=== PATIENT | male | born 1935 ===

== ENCOUNTER 2018-10-12 23:16 | Inpatient (IN) | payer MEDICARE ==
[2018-10-12 23:17] VITALS: BMI 27.3
[2018-10-12] MEDS ORDERED: Aspirin 325 mg EC Tablets PO STA (23:21)
--- NOTE | 2018-10-12 23:21 | C.PDOC ---
History Of Present Illness Patient presents with chest discomfort since around 10:30 PM. Dull aching non radiating discomfort., pressure. Received 324 mg asa en route. Nof/c/n/v. Speaking in complete sentences Time Seen by Provider: 10/12/18 23:20 History Per: Patient History/Exam Limitations: no limitations Onset/Duration Of Symptoms: Hrs Current Symptoms Are (Timing): Still Present Context: Other Severity: Moderate Pain Scale Rating Of: 4 Quality: Dull, Pressure Associated Symptoms: denies: Nausea, Dyspnea Exacerbating Factors: None Alleviating Factors: None Recent travel outside of the [place]: No Additional History Per: Family Past Medical History Reviewed: Historical Data, Nursing Documentation, Vital Signs - Medical History PMH: CAD, Diabetes, HTN, Hypercholesterolemia Denies: Hepatitis, HIV, Seizures, Sexually Transmitted Disease Surgical History: Coronary Stent - [facility] Procedures ENDOSC POLYPECTOMY OF LG INTEST (02/07/14) ESOPHAGOGASTRODUODENOSCOPY [EGD] W/CLOSED BIOPSY (02/07/14) Family History: States: No Known Family Hx - Social History Hx Tobacco Use: No Hx Alcohol Use: No Hx Substance Use: No Review Of Systems Constitutional: Negative for: Fever, Chills Eyes: Negative for: Redness ENT: Negative for: Throat Pain Cardiovascular: Positive for: Chest Pain Respiratory: Negative for: Shortness of Breath Gastrointestinal: Negative for: Abdominal Pain Musculoskeletal: Negative for: Neck Pain Skin: Negative for: Rash Neurological: Negative for: Weakness Psych: Negative for: Anxiety Physical Exam - Physical Exam Appears: Non-toxic Skin: Warm, Dry Head: Normacephalic Eye(s): bilateral: Normal Inspection Ear(s): Bilateral: Other ([place]) Oral Mucosa: Moist Neck: Supple Chest: Symmetrical, Other (cabg) Cardiovascular: Rhythm Regular Respiratory: Rales (bases), No Rhonchi, No Wheezing Gastrointestinal/Abdominal: Soft, No Tenderness, No Distention Back: No CVA Tenderness Extremity: Normal ROM, Deformity (trace pedal edema) Extremity: Bilateral: Atraumatic, Normal ROM Pulses: Left Dorsalis Pedis: Normal, Right Dorsalis Pedis: Normal DTR: Ankle (R): 0, Ankle (L): 0 Neurological/Psych: Oriented x3 Gait: Steady ED Course And Treatment - Laboratory Results Result Diagrams: 10/12/18 23:33 10/12/18 23:33 ECG: Interpreted By Me, Viewed By Me ECG Rhythm: Sinus Rhythm (70), R BBB (freq pac's) Pulse Ox Interpretation: Normal (97) - Radiology CXR: Interpreted by Me, Viewed By Me CXR Interpretation: Yes: Infiltrates (? rll infitrate), Other (mild vasc scotty estion). No: COPD, Cardiomegaly Disposition Discussed With Dr.: Kell Mcneil Comment: accepted the pt on his service and took over the care at 12:29 AM Doctor Will See Patient In The: Hospital Counseled Patient/Family Regarding: Studies Performed, Diagnosis - Disposition Disposition: HOSPITALIZED Disposition Time: 23:21 Condition: FAIR - POA Present On Arrival: Poor Glycemic Control - Clinical Impression Clinical Impression: Chest pain, Hyperglycemia Decision To Admit - Pt Status Changed To: Hospital Disposition Of: Inpatient - Admit Certification Admit to Inpatient:: After my assessment, the patient will require hospitalization for at least two midnights. This is because of the severity of symptoms shown, intensity of services needed, and/or the medical risk in this patient being treated as an outpatient. - InPatient: Physician Admission Certification: I certify that this patient requires 2 or more midnights of care for the following reason:: After my assessment, the patient will require hospitalization for at least two midnights. This is because of the severity of symptoms shown, intensity of services needed, and/or the medical risk in this patient being treated as an outpatient. - . Bed Request Type: Telemetry Admitting Physician: Kell Mcneil Patient Diagnosis: Chest pain, Hyperglycemia
[2018-10-12 23:40] LABS: BASO % 0.5 % (0.0-2.0); EOS # 0.1 K/uL (0.0-0.7); EOS % 2.1 % (0.0-4.0); HEMOGLOBIN 15.9 g/dL (12.0-18.0); LYMPH # 2.2 K/uL (1.0-4.3); MEAN CELL VOLUME 96.4 fL (80.0-94.0); MEAN CORPUSCULAR HEMOGLOBIN 31.6 pg (27.0-31.0); MEAN CORPUSCULAR HGB CONC 32.8 g/dL (33.0-37.0); MEAN PLATELET VOLUME 10.7 fL (7.2-11.7); MONO # 0.8 K/uL (0.0-0.8); MONO % 11.5 % (0.0-10.0); NEUT # 3.8 K/uL (1.8-7.0); NEUT % 53.9 % (50.0-75.0); RBC 5.02 Mil/uL (4.40-5.90); RED CELL DISTRIBUTION WIDTH 12.7 % (11.5-14.5)
[2018-10-12 23:50] LABS: VENOUS BLOOD GAS BASE EXCESS 2.5 mmol/L (0.0-2.0); VENOUS BLOOD GAS PCO2 48 mmHg (40-60); VENOUS BLOOD GAS PO2 40 mm/Hg (30-55); VENOUS BLOOD PH 7.38 (7.32-7.43)
[2018-10-12 23:53] LABS: ALB/GLOB RATIO 1.3 (1.0-2.1); ALBUMIN 4.3 g/dL (3.5-5.0); ALT/SGPT 30 U/L (21-72); AST/SGOT 35 U/L (17-59); BLOOD UREA NITROGEN 22 mg/dL (9-20); CALCIUM 9.1 mg/dl (8.6-10.4); GFR NON-AFRICAN AMERICAN > 60; LIPASE 160 U/L (23-300)
[2018-10-12 23:59] LABS: PROTHROMBIN TIME 10.9 SECONDS (9.7-12.2)
[2018-10-13 00:01] LABS: URINE BILIRUBIN NEGATIVE (NEGATIVE); URINE BLOOD NEGATIVE (NEGATIVE); URINE CLARITY Clear (Clear); URINE COLOR Straw (YELLOW); URINE GLUCOSE (UA) NORMAL (Normal); URINE LEUKOCYTE ESTERASE NEG Leu/uL (Negative); URINE PROTEIN NEGATIVE (NEGATIVE); URINE UROBILINOGEN NORMAL mg/dL (0.2-1.0)
[2018-10-13 00:04] LABS: B-TYPE NATRIURETIC PEPTIDE 94.9 pg/mL (0-900)
[2018-10-13] MEDS ORDERED: DICYCLOMINE 20 MG PO PRN (01:59)
[2018-10-13] MEDS: Enoxaparin 40 mg Syringe SC SCH (10:02)
[2018-10-13 10:50] LABS: CK-MB 1.33 ng/mL (0.0-3.38); TROPONIN I 0.067 ng/mL (0.00-0.120)
--- NOTE | 2018-10-13 13:58 | RAD ---
Date of service: 10/12/2018 PROCEDURE: CHEST RADIOGRAPH, 1 VIEW HISTORY: chest pain COMPARISON: Comparison is made with 10/14/2014 FINDINGS: LUNGS: No evidence of new infiltrate or consolidation in the lungs. PLEURA: No pneumothorax or pleural fluid seen. CARDIOVASCULAR: No aortic atherosclerotic calcification present. Normal. OSSEOUS STRUCTURES: No significant abnormalities. VISUALIZED UPPER ABDOMEN: Normal. OTHER FINDINGS: None. IMPRESSION: No active disease.
[2018-10-13] MEDS ORDERED: Aritificial Tears (15ml) OU STA (19:39)
--- NOTE | 2018-10-13 23:08 | HP ---
HISTORY OF PRESENT ILLNESS: This is an 83-year-old male with history of coronary artery disease, status post PCI who presented to emergency room with symptoms of chest pain that is retrosternal and pressure like. The patient was watching TV when he started to feel that pain. Pain was not associated with any shortness of breath, diaphoresis or palpitation. The patient has a blood pressure machine at home. When he checked it, he found that his systolic blood pressure is 194. The patient called the ambulance. Paramedics arrived. They found that the systolic blood pressure was above 200. The patient was brought to emergency room for further evaluation and admitted for further management. The patient admits that he had the pain before he had his stents placed. Recently, the patient had losartan among his blood pressure medications which was stopped due to dry cough. The patient has been compliant with his medications. Other review of system is negative. ALLERGIES: NO KNOWN ALLERGY. MEDICATIONS: As per MAR were reviewed and ordered. SOCIAL HISTORY: No history of smoking, EtOH or substance abuse. FAMILY HISTORY: Noncontributory. PAST MEDICAL HISTORY: Hypertension, hypercholesterolemia, coronary artery disease, status post PCI. PHYSICAL EXAMINATION: GENERAL: The patient is in bed, not in any cardiopulmonary distress. VITAL SIGNS: Blood pressure 156/73, temperature 97.7, respiratory rate 18, and pulse 56. HEENT: Pupils equal and reactive to light. Normal-appearing mucosa of the conjunctivae, oropharynx and nasal membrane mucosa. NECK: Supple. No JVD. No carotid bruit. No lymph node. No thyromegaly. CHEST AND LUNGS: Bilateral symmetrical expansion. Good air exchange. No rales. No rhonchi. CARDIOVASCULAR SYSTEM: PMI not localized. S1 and S2. No additional sounds. ABDOMEN: Normoactive bowel sounds. No tenderness. No organomegaly. No masses. EXTREMITIES: No cyanosis, no clubbing, no edema. CENTRAL NERVOUS SYSTEM: Alert, awake, oriented x3. No neurological deficit could be appreciated. ASSESSMENT: 1. Chest pain, rule out acute coronary syndrome. 2. Uncontrolled hypertension. 3. Hypercholesterolemia. 4. History of coronary artery disease, status post percutaneous coronary intervention. PLAN: Continue current medications. Cardiac enzymes every 8 hours x3. Cardiology consult. Salt restriction. Sameh MD Tarun [facility] # [id number]
--- NOTE | 2018-10-14 00:32 | CON ---
DATE: 10/13/2018 REASON FOR CONSULTATION: Chest pain. The patient denies extensive cardiac history. He was not sure about the exact date of his medical history. HISTORY OF PRESENT ILLNESS: The patient is an 83-year-old male who has history of hypertension, diabetes mellitus, history of coronary artery disease, status post heart attack in 2004 followed by multiple coronary interventions and in 2007, the patient underwent triple bypass surgery at [facility]. The patient apparently had more coronary interventions following that, but nothing recent. The patient also had a history of stroke in the year 2007 according to his recollection. The patient is being followed by his business law instructor, Dr. Shaina Soria, and he is scheduled for treadmill stress test in early October, i.e., in less than 3 weeks. The patient presents because of chest tightness that he could not describe the between details; however, according to the emergency room description, it was dull, aching, not radiating. The patient denies shortness of breath. The patient denies any recent palpitation, dizziness, or a fall. SOCIAL HISTORY: Nonsmoker, nondrinker. MEDICATIONS: Bentyl 20 mg p.o. every 12 hours, Cozaar 100 mg once a day, Crestor 20 mg once a day, aspirin 81 mg once a day, metformin 500 mg twice a day, Imdur 30 mg once a day, Lopressor 25 mg once a day, Lovenox 40 mg subcutaneously once a day, hydrochlorothiazide 12.5 mg daily, Plavix 75 mg once a day. REVIEW OF SYSTEMS: No fever or chills. No nausea or vomiting. No dizziness or syncope. PHYSICAL EXAMINATION: GENERAL: The patient is an elderly male who does not appear to be in acute distress. VITAL SIGNS: Blood pressure 156/73, heart rate 60, temperature 98.7, respirations 18. HEENT: Normocephalic. NECK: No JVD. CHEST: Clear. HEART: S1, S2 regular. ABDOMEN: Soft. EXTREMITIES: No edema. LABORATORY DATA: Chest x-ray, no active disease. Admitting hemoglobin and hematocrit 15.9 and 48.4. White count and platelet count within normal limit. Today's SMA-7: Sodium 134, potassium 4.1, chloride 98, CO2 of 29, glucose 147, BUN 22, creatinine 0.8. Lipase is within normal limit. Two sets of troponins are not in the elevated range. EKG reveals sinus rhythm with APCs, right bundle-branch block, old inferior infarct, and possible old anterior infarct. ASSESSMENT: 1. Chest pain. Myocardial infarction is ruled out. 2. Uncontrolled diabetes mellitus. 3. Uncontrolled systolic hypertension. 4. History of coronary artery disease, status post triple bypass surgery in 2007. 5. History of cerebrovascular accident in the past. RECOMMENDATIONS: Continue Crestor 20 mg once a day, aspirin 81 mg once a day, Cozaar 100 mg daily, Imdur 30 mg once a day, Lopressor 25 mg daily, subcutaneous Lovenox 20 mg daily. Obtain an echocardiographic study and if unremarkable, the patient can then be followed by his business law instructor, Dr. Soria, for the planned stress test in early October. Odell Pina MD
[2018-10-14] MEDS: Enoxaparin 40 mg Syringe SC SCH (10:16)
--- NOTE | 2018-10-14 20:48 | PN ---
DATE: 10/14/2018 SUBJECTIVE: The patient denies any chest pain or shortness of breath. PHYSICAL EXAMINATION: VITAL SIGNS: Blood pressure 119/67, heart rate 60, temperature 97.8, respirations 20. HEENT: Normocephalic. CHEST: Clear. HEART: S1, S2, regular. EXTREMITIES: No edema. LABORATORY DATA: His blood sugars are 98 and 169 respectively. ASSESSMENT: 1. Chest pain, myocardial infarction is ruled out. 2. Diabetes mellitus and hypertension. 3. History of coronary artery disease, status post triple bypass surgery in 2007. 4. History of cerebrovascular accident. 5. Hyperlipidemia. RECOMMENDATIONS: Continue current medical management including Cozaar 100 mg once a day, Crestor 20 mg once a day, aspirin 81 mg once a day, metformin 500 mg twice a day, Imdur 30 mg once a day, Lopressor 25 mg once a day, Lovenox 40 mg subcutaneously once a day, hydrochlorothiazide 12.5 mg once a day, Plavix 75 mg once a day. The patient can be discharged to be followed by his primary transplant rn, Dr. Shaina Soria for his scheduled outpatient stress test in two weeks. The patient is very concerned and anxious about having any workup done because of his concern about his medical coverage and the fact that he may get unnecessary bills from the doctor's or the hospital according to him. The patient was very cautious with me upon evaluating him insisting that he should not get any bills. Odell Pina MD
--- NOTE | 2018-10-14 22:49 | PN ---
DATE: 10/14/2018 SUBJECTIVE: The patient is seen today, 10/14/2018. He is not in any cardiopulmonary distress. PHYSICAL EXAMINATION: VITAL SIGNS: Blood pressure 119/67, temperature 97.8, respiratory rate 20 and pulse 65. HEENT: Pupils equal, reactive to light. Normal-appearing mucosa of the conjunctivae, oropharynx and nasal membrane mucosa. NECK: Supple. No JVD. No carotid bruit. No lymph node. No thyromegaly. CHEST AND LUNGS: Bilateral symmetrical expansion. Good air exchange. No rales, no rhonchi. CARDIOVASCULAR: PMI not localized. S1, S2. No additional sounds. ABDOMEN: Normoactive bowel sounds. No tenderness. No organomegaly. No masses. EXTREMITIES: No cyanosis, no clubbing, no edema. CENTRAL NERVOUS SYSTEMS: Alert, awake, oriented x2. No neurological deficit could be appreciated. ASSESSMENT: 1. Chest pain, myocardial infarction is ruled out. 2. History of coronary artery disease, status post coronary artery bypass graft in 2007 and percutaneous coronary intervention in 2015. 3. Uncontrolled hypertension. PLAN: Continue current medications and follow Cardiology recommendations. Kell Mcneil MD
[2018-10-15 00:32] VITALS: BP 125/66
[2018-10-15] MEDS: Enoxaparin 40 mg Syringe SC SCH (09:01)
[2018-10-15 09:19] VITALS: PULSE 90; RESP 20; TEMP 97.9; O2SAT 100
--- NOTE | 2018-10-15 09:39 | CARD ---
APPROVED REPORT Date of service: 10/12/2018 EKG Measurement Heart [id number] KS 192P [id number] <Conclusion> Sinus rhythm with premature atrial complexes Left axis deviation Right bundle branch block Septal infarct, age undetermined Inferior infarct, age undetermined Abnormal ECG
[2018-10-15] MEDS ORDERED: Influenza Vaccine 60 mcg/0.5 mL SYR (4YR UP) IM ONE (11:00)
[2018-10-15] MEDS ORDERED: Pneumococcal 23-Valent Vaccine IM ONE (11:00)
--- NOTE | 2018-10-15 11:23 | CP.PCM.PN ---
Subjective - Date & Time of Evaluation Date of Evaluation: 10/15/18 Time of Evaluation: 11:22 Objective - Vital Signs/Intake and Output Vital Signs (last 24 hours): Temp Pulse Resp BP Pulse Ox 97.9 F 90 20 125/66 100 10/15/18 07:00 10/15/18 07:00 10/15/18 07:00 10/15/18 09:02 10/15/18 07:00 - Medications Medications: Current Medications Aspirin (Ecotrin) 81 mg PO DAILY [facility] Last Admin: 10/15/18 09:03 Dose: 81 mg Clopidogrel Bisulfate (Plavix) 75 mg PO DAILY [facility] Last Admin: 10/15/18 09:03 Dose: 75 mg Dicyclomine HCl (Bentyl) 20 mg PO Q12 PRN PRN Reason: abdominal pain Enoxaparin Sodium (Lovenox) 40 mg SC DAILY [facility] Last Admin: 10/15/18 09:01 Dose: 40 mg Hydrochlorothiazide (Microzide) 12.5 mg PO DAILY [facility] Last Admin: 10/15/18 09:02 Dose: 12.5 mg Isosorbide Mononitrate (Imdur Er) 30 mg PO DAILY [facility] Last Admin: 10/15/18 09:04 Dose: 30 mg Losartan Potassium (Cozaar) 100 mg PO DAILY [facility] Last Admin: 10/15/18 09:03 Dose: 100 mg Metformin HCl (Glucophage) [facility] Last Admin: 10/15/18 08:44 Dose: 500 mg Metoprolol Tartrate (Lopressor) 25 mg PO DAILY [facility] Last Admin: 10/15/18 09:02 Dose: 25 mg Rosuvastatin Calcium (Crestor) 20 mg PO DAILY [facility] Last Admin: 10/15/18 09:02 Dose: 20 mg - Labs Labs: 10/12/18 23:33 10/12/18 23:33 PT 10.9 SECONDS (9.7-12.2) 10/12/18 23:48 INR 1.0 10/12/18 23:48 APTT 32 SECONDS (21-34) 10/12/18 23:48 Assessment and Plan - Assessment and Plan (Free Text) Assessment: FOLLOW UP WITH DR CASTILLO IN HIS OFFICE ------CALL FOR APPOINTMENT FOLLOW UP WITH YOUR PHYSICAL THERAPY AIDE DR RAGHU FERRER IN HIS OFFICE ------CALL FOR APPOINTMENT ADDRESS YOUR STRESS TEST OUT PATIENT IN 2 WEEKS CONTINUE HOME MEDICATION ACTIVITY TOLERATED CALL DR CASTILLO OR GO TO THE EMERGENCY ROOM IF SYMPTOM RETURN OR WORSENING
--- NOTE | 2018-10-15 17:07 | PN ---
DATE: 10/15/2018 SUBJECTIVE: The patient denies any chest pain at this time. PHYSICAL EXAMINATION: VITAL SIGNS: Blood pressure 141/91, heart rate 90, temperature 97.9, respirations 20. HEENT: Normocephalic. CHEST: Minimal rhonchi. HEART: S1 and S2 regular. ABDOMEN: Soft. EXTREMITIES: No edema. LABORATORY DATA: His blood sugar is 113. ASSESSMENT: 1. Chest pain, myocardial infarction ruled out. 2. Coronary artery disease, status post bypass surgery in 2007 and history of multiple coronary interventions in the past. 3. History of cerebrovascular accident. 4. Hyperlipidemia. RECOMMENDATIONS: Continue current medical management including Cozaar, Crestor, aspirin, Imdur, Lopressor, hydrochlorothiazide, and Plavix. The patient can be discharged to see his die repairer stamping, Dr. Soria on 10/30/2018, where he is scheduled to have an outpatient stress test. Odell Pina MD
== END 2018-10-15 13:02 | disposition home or self-care (01) | DRG 303 ==
LOC: C.ER 23:16 → C.9E 10-13 00:28 → C.5S 10-13 02:10
PROVIDERS: ADMIT Internal Medicine; ATTEND Internal Medicine
DX: I25.10 Atherosclerotic heart disease of native coronary artery without angina pectoris (principal); E78.00 Pure hypercholesterolemia, unspecified; E11.65 Type 2 diabetes mellitus with hyperglycemia; I10 Essential (primary) hypertension; I25.2 Old myocardial infarction; Z95.1 Presence of aortocoronary bypass graft; Z86.73 Personal history of transient ischemic attack (TIA), and cerebral infarction without residual deficits

== ENCOUNTER 2019-01-21 07:17 | Observation (INO) | payer MEDICARE ==
[2019-01-21 07:17] VITALS: BMI 27.3
[2019-01-21 09:30] LABS: BASO # 0.1 K/uL (0.0-0.2); BASO % 0.7 % (0.0-2.0); EOS # 0.4 K/uL (0.0-0.7); EOS % 5.5 % (0.0-4.0); HEMOGLOBIN 16.1 g/dL (12.0-18.0); LYMPH # 1.8 K/uL (1.0-4.3); LYMPH % 22.6 % (20.0-40.0); MEAN CORPUSCULAR HEMOGLOBIN 32.5 pg (27.0-31.0); MEAN CORPUSCULAR HGB CONC 34.7 g/dL (33.0-37.0); MEAN PLATELET VOLUME 10.3 fL (7.2-11.7); MONO # 0.8 K/uL (0.0-0.8); MONO % 10.5 % (0.0-10.0); NEUT # 4.8 K/uL (1.8-7.0); NEUT % 60.7 % (50.0-75.0); RBC 4.95 Mil/uL (4.40-5.90); RED CELL DISTRIBUTION WIDTH 13.6 % (11.5-14.5); WHITE BLOOD COUNT 7.9 K/uL (4.8-10.8)
[2019-01-21 09:31] LABS: MEAN CELL VOLUME 93.8 fL (80.0-94.0)
[2019-01-21 09:38] LABS: PARTIAL THROMBOPLASTIN TIME 31.9 SECONDS (21-34); PROTHROMBIN TIME 11.2 SECONDS (9.7-12.2)
[2019-01-21 09:40] LABS: ALB/GLOB RATIO 1.2 (1.0-2.1); ALT/SGPT 22 U/L (21-72); AST/SGOT 24 U/L (17-59); BLOOD UREA NITROGEN 22 mg/dL (9-20); CALCIUM 9.9 mg/dl (8.6-10.4); GFR NON-AFRICAN AMERICAN > 60
[2019-01-21 10:04] LABS: SQUAMOUS EPITHIAL < 1 /hpf (0-5); URINE BILIRUBIN NEGATIVE (NEGATIVE); URINE BLOOD NEGATIVE (NEGATIVE); URINE CLARITY Clear (Clear); URINE COLOR Yellow (YELLOW); URINE GLUCOSE (UA) NORMAL (Normal); URINE LEUKOCYTE ESTERASE NEG Leu/uL (Negative); URINE PROTEIN NEGATIVE (NEGATIVE); URINE UROBILINOGEN NORMAL mg/dL (0.2-1.0)
--- NOTE | 2019-01-21 10:53 | C.PDOC ---
History Of Present Illness 83 y/o male presents to ED complaining of pruritic rash that started yesterday. States 3 days ago he was given new vitamins (vitamin D) and developed rash yesterday. He denies any difficulty breathing, difficulty swallowing, change of voice, SOB, fever, or chills. Time Seen by Provider: 01/21/19 07:30 Chief Complaint (Nursing): Abnormal Skin Integrity History Per: Patient History/Exam Limitations: no limitations Onset/Duration Of Symptoms: Days Current Symptoms Are (Timing): Still Present Past Medical History Reviewed: Historical Data, Nursing Documentation, Vital Signs Vital Signs: Last Vital Signs Temp 98.4 F 01/21/19 10:25 Pulse 62 01/21/19 10:25 Resp 16 01/21/19 10:25 BP 164/74 H 01/21/19 10:25 Pulse Ox 97 01/21/19 10:25 Primary Care Provider: Kell Mcneil - Medical History PMH: Arthritis, CAD, Diabetes, HTN, Hypercholesterolemia Denies: Hepatitis, HIV, Seizures, Sexually Transmitted Disease Surgical History: Coronary Stent - [facility] Procedures ENDOSC POLYPECTOMY OF LG INTEST (02/07/14) ESOPHAGOGASTRODUODENOSCOPY [EGD] W/CLOSED BIOPSY (02/07/14) Family History: States: No Known Family Hx - Social History Hx Tobacco Use: No Hx Alcohol Use: Yes Hx Substance Use: No - Immunization History Hx Tetanus Toxoid Vaccination: No Hx Influenza Vaccination: No Hx Pneumococcal Vaccination: No Review Of Systems Except As Marked, All Systems Reviewed And Found Negative. Constitutional: Negative for: Fever, Chills Cardiovascular: Negative for: Chest Pain Respiratory: Negative for: Cough, Shortness of Breath Gastrointestinal: Negative for: Nausea, Vomiting, Abdominal Pain Skin: Positive for: Rash Physical Exam - Physical Exam Appears: Non-toxic, No Acute Distress Skin: Warm, Dry, Rash (diffuse erythematous rash) Head: Normacephalic Eye(s): bilateral: Normal Inspection Oral Mucosa: Moist Tongue: No Swelling Lips: No Swelling Throat: Normal, No Erythema, Other (uvula midline, airway is patent) Cardiovascular: Rhythm Regular, No Murmur Respiratory: Normal Breath Sounds, No Rales, No Rhonchi, No Wheezing Gastrointestinal/Abdominal: Soft, Tenderness (diffuse tenderness in the lower abdomen, no guarding, no rebound), No Organomegaly, No Mass, No Distention Back: No Vertebral Tenderness, No Paraspinal Tenderness Extremity: Pedal Edema Extremity: Bilateral: Normal ROM Neurological/Psych: Oriented x3, Normal Speech (normal voice), Normal Cognition, Normal Motor, Normal Sensation ED Course And Treatment - Laboratory Results Result Diagrams: 01/21/19 09:23 01/21/19 09:23 Lab Results: PT 11.2 SECONDS (9.7-12.2) 01/21/19 09: INR 1.0 01/21/19 09: APTT 31.9 SECONDS (21-34) 01/21/19 09:23 Total Bilirubin 0.5 mg/dL (0.2-1.3) 01/21/19 09:23 AST 24 U/L (17-59) 01/21/19 09:23 ALT 22 U/L (21-72) 01/21/19 09:23 Alkaline Phosphatase 55 U/L (38-126) 01/21/19 09:23 Total Protein 7.3 g/dL (6.3-8.3) 01/21/19 09:23 Albumin 4.0 g/dL (3.5-5.0) 01/21/19 09:23 Globulin 3.3 gm/dL (2.2-3.9) 01/21/19 09: Albumin/Globulin Ratio 1.2 (1.0-2.1) 01/21/19 09:23 Urine Color Yellow (YELLOW) 01/21/19 09: Urine Clarity Clear (Clear) 01/21/19 09: Urine pH 5.0 (5.0-8.0) 01/21/19 09:23 Ur Specific [place] 1.014 (1.003-1.030) 01/21/19 09:23 Urine Protein Negative mg/dL (NEGATIVE) 01/21/19 09:23 Urine Glucose (UA) Normal mg/dL (Normal) 01/21/19 09: Urine Ketones Negative mg/dL (NEGATIVE) 01/21/19 09:23 Urine Blood Negative (NEGATIVE) 01/21/19 09: Urine Nitrate Negative (NEGATIVE) 01/21/19 09: Urine Bilirubin Negative (NEGATIVE) 01/21/19 09: Urine Urobilinogen Normal mg/dL (0.2-1.0) 01/21/19 09:23 Ur Leukocyte Esterase Neg Rolando/uL (Negative) 01/21/19 09:23 Urine WBC (Auto) < 1 /hpf (0-5) 01/21/19 09:23 Urine RBC (Auto) < 1 /hpf (0-3) 01/21/19 09:23 Ur Squamous Epith Cells < 1 /hpf (0-5) 01/21/19 09:23 O2 Sat by Pulse Oximetry: 97 (RA) Pulse Ox Interpretation: Normal - Other Rad CXR X-Ray: Read By Radiologist Interpretation: FINDINGS: LUNGS: No evidence of new infiltrate or consolidation. PLEURA: No pneumothorax or pleural fluid seen. CARDIOVASCULAR: No aortic atherosclerotic calcification present. Status post sternotomy. OSSEOUS STRUCTURES: No significant abnormalities. VISUALIZED UPPER ABDOMEN: Normal. OTHER FINDINGS: None. IMPRESSION: No active disease. - CT Scan/US Abd/Pel CT Other Rad Studies (CT/US): Read By Radiologist, Radiology Report Reviewed CT/US Interpretation: FINDINGS: LOWER THORAX: No evidence of acute pathology at the lung bases. The heart is mildly enlarged. LIVER: Mild hepatomegaly is noted. GALLBLADDER AND BILE DUCTS: Gallstones are noted without evidence of acute cholecystitis. PANCREAS: Unremarkable. No gross lesion or ductal dilatation. SPLEEN: Unremarkable. ADRENALS: Unremarkable. No mass. KIDNEYS AND URETERS: No evidence of nephrolithiasis or hydronephrosis. Vascular calcification are noted bilaterally. There is low-attenuation cyst exophytic from the lower pole of the left kidney measures 6.6 centimeter in the transverse diameter. VASCULATURE: Unremarkable. Mild aneurysmal dilatation of the distal abdominal aorta is noted measures up to 2.5 centimeter P. Diffuse ath erosclerotic calcification noted. BOWEL: Diffuse colonic diverticulosis noted without definite evidence of diverticulitis. No evidence of high-grade bowel obstruction. APPENDIX: No evidence of appendicitis. PERITONEUM: Unremarkable. No free fluid. No free air. LYMPH NODES: Unremarkable. No enlarged lymph nodes. BLADDER: Mild circumferential urinary bladder wall thickening. REPRODUCTIVE: The prostate is mildly enlarged. BONES: No acute fracture. OTHER FINDINGS: None. IMPRESSION: Gallstones without evidence of acute cholecystitis. Colonic diverticulosis without CT evidence of diverticulitis. Large cyst in the left kidney. Mild circumferential urinary bladder wall thickening. Mildly enlarged prostate. Progress Note: Bloodwork ordered and reviewed, normal. Chest XR was normal. Patient given prednisone, benadryl, and pepcid. Abd/Pel CT ordered. On re- evaluation patient still c/o generalized priritis. Atarax po given. On the second evaluation patient still sts he doesn't feel good. Contacted patient's PMD who requested an admission to the hospitalist service. Contacted who accepted patient to [facility] for observation. Disposition - Disposition Disposition: HOSPITALIZED Disposition Time: 13:28 Condition: FAIR - Clinical Impression Clinical Impression: Allergic urticaria, Abdominal pain - PA / BEAUTY CULTURIST APPRENTICE / Resident Statement MD/DO has reviewed & agrees with the documentation as recorded. - Scribe Statement The provider has reviewed the documentation as recorded by the Nicoleibwill Flaherty All medical record entries made by the Nicoleibwill were at my direction and personally dictated by me. I have reviewed the chart and agree that the record accurately reflects my personal performance of the history, physical exam, m edical decision making, and the department course for this patient. I have also personally directed, reviewed, and agree with the discharge instructions and disposition. Decision To Admit - Pt Status Changed To: Hospital Disposition Of: Observation - . Bed Request Type: Regular Admitting Physician: Gina Milian Patient Diagnosis: Allergic urticaria, Abdominal pain
[2019-01-21 10:57] LABS: B-TYPE NATRIURETIC PEPTIDE 252 pg/mL (0-900)
--- NOTE | 2019-01-21 10:59 | RAD ---
Date of service: 01/21/2019 PROCEDURE: CHEST RADIOGRAPH, 1 VIEW HISTORY: LE edema COMPARISON: 10/12/2018 FINDINGS: LUNGS: No evidence of new infiltrate or consolidation. PLEURA: No pneumothorax or pleural fluid seen. CARDIOVASCULAR: No aortic atherosclerotic calcification present. Status post sternotomy. OSSEOUS STRUCTURES: No significant abnormalities. VISUALIZED UPPER ABDOMEN: Normal. OTHER FINDINGS: None. IMPRESSION: No active disease.
--- NOTE | 2019-01-21 12:07 | CT ---
Date of service: 01/21/2019 PROCEDURE: CT Abdomen and Pelvis without intravenous contrast HISTORY: abd pain COMPARISON: None. TECHNIQUE: Axial and reformatted coronal and sagittal CT images of the abdomen and pelvis were obtained without IV or oral contrast administration.. Contrast dose: 0 Radiation dose: Total exam DLP = 510.07 mGy-cm. This CT exam was performed using one or more of the following dose reduction techniques: Automated exposure control, adjustment of the mA and/or kV according to patient size, and/or use of iterative reconstruction technique. FINDINGS: LOWER THORAX: No evidence of acute pathology at the lung bases. The heart is mildly enlarged. LIVER: Mild hepatomegaly is noted. GALLBLADDER AND BILE DUCTS: Gallstones are noted without evidence of acute cholecystitis. PANCREAS: Unremarkable. No gross lesion or ductal dilatation. SPLEEN: Unremarkable. ADRENALS: Unremarkable. No mass. KIDNEYS AND URETERS: No evidence of nephrolithiasis or hydronephrosis. Vascular calcification are noted bilaterally. There is low-attenuation cyst exophytic from the lower pole of the left kidney measures 6.6 centimeter in the transverse diameter. VASCULATURE: Unremarkable. Mild aneurysmal dilatation of the distal abdominal aorta is noted measures up to 2.5 centimeter P. Diffuse atherosclerotic calcification noted. BOWEL: Diffuse colonic diverticulosis noted without definite evidence of diverticulitis. No evidence of high-grade bowel obstruction. APPENDIX: No evidence of appendicitis. PERITONEUM: Unremarkable. No free fluid. No free air. LYMPH NODES: Unremarkable. No enlarged lymph nodes. BLADDER: Mild circumferential urinary bladder wall thickening. REPRODUCTIVE: The prostate is mildly enlarged. BONES: No acute fracture. OTHER FINDINGS: None. IMPRESSION: Gallstones without evidence of acute cholecystitis. Colonic diverticulosis without CT evidence of diverticulitis. Large cyst in the left kidney. Mild circumferential urinary bladder wall thickening. Mildly enlarged prostate.
[2019-01-21] MEDS ORDERED: Glucagon Recombinant 1 mg Inj IM PRN (14:15)
[2019-01-21] MEDS ORDERED: Dextrose 50% SYRINGE Inj (50 ml) IVP PRN (14:15)
[2019-01-21] MEDS ORDERED: Dextrose 50% SYRINGE Inj (50 ml) IV PRN (14:15)
--- NOTE | 2019-01-21 14:48 | CP.PCM.HP ---
History of Present Illness - History of Present Illness History of Present Illness: Medicine History and Physical for Hospitalist Service, Dr. Milian (covering for Dr. Mcneil) This is an 83 y o male with PMhx HTN, HLD, Vit D deficiency, and CAD s/p 5 stents (3 placed in 2002, 2 placed in 2007), who presents to the ED with c/o pruritic rash that has been worsening for the past 3 days. Pt states he was recently placed on Vitamin D oral therapy by his PCP 3 days ago and thinks it might be attributed to that. States rash is generalized over anterior and posterior torso, and extends down to the anterior shins b/l. Has tried topical anti-itch lotion OTC for symptoms without relief. He told his daughter about his symptoms and she stated that he might have Shingles and told him to come to the ED to be evaluated. Pt states he drove himself to the ED, presents at bedside with his girlfriend. Unable to describe rash, but denies any abnormal discharge weeping from the lesions. Denies trying new detergents/waiter/waitress informal, hx allergies, trying any new foods recently, bug bites, or recent travel. Denies fever, c hills, headache, dizziness, chest pain, sob, n/v/d/c, abd pain, urinary complaints, or other symptoms. PMhx: as noted above PSurgHx: s/p 5 cardiac stents (3 placed in 2002, 2 placed in 2007) Allergies: NKDA Home meds: Vit D3 1000 U daily, Lipitor 40 mg daily, HCTZ 12.5 mg daily, Plavix 75 mg daily, Imdur 30 mg daily, Metoprolol tartrate 25 mg daily, Metformin 500 mg PO bid, ASA 81 mg daily Fam hx: denies Soc hx: Smoked 5 cigarettes/day for 3 years, quit 55 y ago. Denies EtOH or illicit drug use. 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 PMD: Dr. Mcneil Primary airveyor operator: Dr. Soria Present on Admission - Present on Admission Any Indicators Present on Admission: No Review of Systems - Constitutional Constitutional: absent: Chills, Fatigue, Fever - EENT Eyes: absent: Change in Vision - Cardiovascular Cardiovascular: absent: Chest Pain, Dyspnea on Exertion, Pain Radiating to Arm/Neck/Jaw, Palpitations, Pedal Edema, Syncope - Respiratory Respiratory: absent: Cough, Dyspnea, Wheezing, Chest Congestion - Gastrointestinal Gastrointestinal: absent: Abdominal Pain, Constipation, Diarrhea, Nausea, Vomiting - Genitourinary Genitourinary: absent: Change in Urinary Stream, Difficulty Urinating, Dysuria - Musculoskeletal Musculoskeletal: absent: Abnormal Gait, Loss of Height, Muscle Weakness, Myalgias, Stiffness, Tingling - Integumentary Integumentary: Erythema, Pruritus, Rash. absent: Skin Ulcer, Unusual Bruising, Wounds, Jaundice - Neurological Neurological: absent: Dizziness, Headaches, Syncope - Hematologic/Lymphatic Hematologic: absent: Easy Bleeding, Easy Bruising, Lymphadenopathy Past Patient History - Infectious Disease Hx of Infectious Diseases: None - Past Medical History & Family History Past Medical History?: Yes - Past Social History Smoking Status: Former Smoker - CARDIAC Hx Hypercholesterolemia: Yes Hx Hypertension: Yes - PULMONARY Hx Tuberculosis: No - NEUROLOGICAL Hx Seizures: No - ENDOCRINE/METABOLIC Hx Diabetes Mellitus Type 2: Yes - HEMATOLOGICAL/ONCOLOGICAL Hx Human Immunodeficiency Virus (HIV): No - MUSCULOSKELETAL/RHEUMATOLOGICAL Hx Arthritis: Yes - GENITOURINARY/GYNECOLOGICAL Hx Sexually Transmitted Disorders: No - PSYCHIATRIC Hx Substance Use: No - SURGICAL HISTORY Hx Coronary Stent: Yes - ANESTHESIA Hx Anesthesia: Yes Hx Anesthesia Reactions: No Hx Malignant Hyperthermia: No Meds Allergies/Adverse Reactions: Allergies Allergy/AdvReac Type Severity Reaction Status Date / Time No Known Allergies Allergy Verified 01/21/19 07:28 Physical Exam - Constitutional Appears: Non-toxic, No Acute Distress - Head Exam Head Exam: ATRAUMATIC, NORMOCEPHALIC - Eye Exam Eye Exam: EOMI, Normal appearance, PERRL - ENT Exam ENT Exam: Mucous Membranes Moist - Neck Exam Neck exam: Positive for: Full Rom, Normal Inspection. Negative for: Lymp hadenopathy, Tenderness - Respiratory Exam Respiratory Exam: Clear to Auscultation Bilateral, NORMAL BREATHING PATTERN. absent: Rales, Rhonchi, Wheezes - Cardiovascular Exam Cardiovascular Exam: REGULAR RHYTHM, +S1, +S2. absent: Gallop, Rubs, Systolic Murmur - GI/Abdominal Exam GI & Abdominal Exam: Normal Bowel Sounds, Soft. absent: Distended, Guarding, Organomegaly, Tenderness - Extremities Exam Extremities exam: Positive for: full ROM, normal capillary refill, pedal pulses present. Negative for: pedal edema, tenderness - Back Exam Back exam: FULL ROM, NORMAL INSPECTION, rash noted. absent: paraspinal tenderness Additional comments: Numerous skin tags present on anterior and posterior torso b/l, interspersed with 1 mm macules, blanchable on exam, no abnormal discharge appreciated, no tenderness to palpation on exam - Neurological Exam Neurological exam: Alert, CN II-XII Intact, Normal Gait, Oriented x3, Reflexes Normal - Psychiatric Exam Psychiatric exam: Normal Affect, Normal Mood - Skin Skin Exam: Dry, Intact, Warm Results - Vital Signs Recent Vital Signs: Last Vital Signs Temp 97.9 F 01/21/19 11:30 Pulse 62 01/21/19 11:30 Resp 20 01/21/19 11:30 BP 109/69 01/21/19 11:30 Pulse Ox 97 01/21/19 13:29 - Labs Result Diagrams: 01/21/19 09:23 01/21/19 09:23 Labs: Laboratory Results - last 24 hr 01/21/19 01/21/19 01/21/19 09:23 09:23 09:23 WBC 7.9 RBC 4.95 Hgb 16.1 Hct 46.4 MCV 93.8 D MCH 32.5 H MCHC 34.7 RDW 13.6 Plt Count 147 MPV 10.3 Neut % (Auto) 60.7 Lymph % (Auto) 22.6 [place] % (Auto) 10.5 H Eos % (Auto) 5.5 H Baso % (Auto) 0.7 Neut # (Auto) 4.8 Lymph # (Auto) 1.8 [place] # (Auto) 0.8 Eos # (Auto) 0.4 Baso # (Auto) 0.1 PT INR APTT Sodium 137 Potassium 3.9 Chloride 103 Carbon Dioxide 25 Anion Gap 13 BUN 22 H Creatinine 0.9 Est GFR ( Amer) > 60 Est GFR (Non-Af Amer) > 60 Random Glucose 121 H Calcium 9.9 Total Bilirubin 0.5 AST 24 ALT 22 Alkaline Phosphatase 55 NT-Pro-B Natriuret Pep 252 Total Protein 7.3 Albumin 4.0 Globulin 3.3 Albumin/Globulin Ratio 1.2 Urine Color Yellow Urine Clarity Clear Urine pH 5.0 Ur Specific [place] 1.014 Urine Protein Negative Urine Glucose (UA) Normal Urine Ketones Negative Urine Blood Negative Urine Nitrate Negative Urine Bilirubin Negative Urine Urobilinogen Normal Ur Leukocyte Esterase Neg Urine WBC (Auto) < 1 Urine RBC (Auto) < 1 Ur Squamous Epith Cells < 1 01/21/19 09:23 WBC RBC Hgb Hct MCV MCH MCHC RDW Plt Count MPV Neut % (Auto) Lymph % (Auto) [place] % (Auto) Eos % (Auto) Baso % (Auto) Neut # (Auto) Lymph # (Auto) [place] # (Auto) Eos # (Auto) Baso # (Auto) PT 11.2 INR 1.0 APTT 31.9 Sodium Potassium Chloride Carbon Dioxide Anion Gap BUN Creatinine Est GFR ( Amer) Est GFR (Non-Af Amer) Random Glucose Calcium Total Bilirubin AST ALT Alkaline Phosphatase NT-Pro-B Natriuret Pep Total Protein Albumin Globulin Albumin/Globulin Ratio Urine Color Urine Clarity Urine pH Ur Specific [place] Urine Protein Urine Glucose (UA) Urine Ketones Urine Blood Urine Nitrate Urine Bilirubin Urine Urobilinogen Ur Leukocyte Esterase Urine WBC (Auto) Urine RBC (Auto) Ur Squamous Epith Cells Assessment & Plan - Assessment and Plan (Free Text) Assessment: This is an 83 y o male with PMhx HTN, HLD, Vit D deficiency, and CAD s/p 5 stents (3 placed in 2002, 2 placed in 2007), who presents to the ED with c/o pruritic rash that has been worsening for the past 3 days. R/o allergic etiology. Plan: Pruritis/Rash -R/o allergic etiology -Admit to obs on med/surg -Hydroxyzine 25 mg PO q6h prn -Pepcid 20 mg PO bid -Calamine lotion top bid prn -No leukocytosis or fevers on admission -F/u CBC tomorrow am -S/p Benadryl, Prednisone, Hydroxyzine, and Pepcid in ED -U/a wnl on admission Hx CAD -C/w home meds ASA, Plavix, Metoprolol, Imdur Hx HTN -C/w home meds Metoprolol, HCTZ -Cont to trend BPs Hx DM -Metformin held on admission -ISS-med -Fingersticks achs -Hypoglycemic protocol -Cont to monitor Hx HLD -C/w home med Lipitor PPX: -GI: Pepcid bid -DVT: SCD, pt ambulating at baseline without concerns Pt seen, examined with, and plan discussed with Dr. Milian, attending physician. Mamadou Cohn DO PGY-1, Inspector [employer] Pager #[phone]
[2019-01-21] MEDS ORDERED: Calamine-Zinc Oxide Lotion (120 ml) TOP PRN (14:57)
[2019-01-21 17:38] VITALS: RESP 20
[2019-01-21] MEDS: (Novolog) Insulin Aspart, Recombinant 100 u/ml 10 ml vial SC SCH ×2 (18:15→22:00)
[2019-01-22 06:50] LABS: BASO % 0.4 % (0.0-2.0); EOS # 0.2 K/uL (0.0-0.7); EOS % 1.9 % (0.0-4.0); HEMOGLOBIN 17.5 g/dL (12.0-18.0); LYMPH # 1.5 K/uL (1.0-4.3); LYMPH % 16.1 % (20.0-40.0); MEAN CORPUSCULAR HEMOGLOBIN 32.1 pg (27.0-31.0); MEAN CORPUSCULAR HGB CONC 34.2 g/dL (33.0-37.0); MEAN PLATELET VOLUME 10.3 fL (7.2-11.7); MONO % 10.9 % (0.0-10.0); NEUT # 6.7 K/uL (1.8-7.0); NEUT % 70.7 % (50.0-75.0); RBC 5.45 Mil/uL (4.40-5.90); RED CELL DISTRIBUTION WIDTH 13.3 % (11.5-14.5); WHITE BLOOD COUNT 9.4 K/uL (4.8-10.8)
[2019-01-22 07:44] LABS: ALB/GLOB RATIO 1.3 (1.0-2.1); ALBUMIN 4.5 g/dL (3.5-5.0); ALT/SGPT 11 U/L (21-72); AST/SGOT 34 U/L (17-59); BLOOD UREA NITROGEN 22 mg/dL (9-20); GFR NON-AFRICAN AMERICAN > 60
[2019-01-22] MEDS: (Novolog) Insulin Aspart, Recombinant 100 u/ml 10 ml vial SC SCH ×2 (07:54→12:30)
[2019-01-22 17:07] VITALS: BP 167/70; PULSE 61; TEMP 97.4
--- NOTE | 2019-01-22 19:26 | CP.PCM.DIS ---
<Mamadou Cohn - Last Filed: 01/22/19 19:26> Provider - Provider Date of Admission: 01/21/19 13:27 Attending physician: Gina Milian MD Primary care physician: Dr. Mcneil Consults: none Time Spent in preparation of Discharge (in minutes): 35 Diagnosis - Discharge Diagnosis (1) Allergic urticaria Status: Acute (2) History of coronary artery disease Status: Chronic (3) History of diabetes mellitus Status: Chronic (4) HLD (hyperlipidemia) Status: Chronic (5) Hypertension Status: Chronic Hospital Course - Lab Results Lab Results: Most Recent Lab Values WBC 9.4 K/uL (4.8-10.8) 01/22/19 06:44 RBC 5.45 Mil/uL (4.40-5.90) 01/22/19 06:44 Hgb 17.5 g/dL (12.0-18.0) 01/22/19 06:44 Hct 51.2 % (35.0-51.0) H 01/22/19 06:44 MCV 94.0 fL (80.0-94.0) 01/22/19 06:44 MCH 32.1 pg (27.0-31.0) H 01/22/19 06:44 MCHC 34.2 g/dL (33.0-37.0) 01/22/19 06:44 RDW 13.3 % (11.5-14.5) 01/22/19 06:44 Plt Count 168 K/uL (130-400) 01/22/19 06:44 MPV 10.3 fL (7.2-11.7) 01/22/19 06:44 Neut % (Auto) 70.7 % (50.0-75.0) 01/22/19 06:44 Lymph % (Auto) 16.1 % (20.0-40.0) L 01/22/19 06:44 [place] % (Auto) 10.9 % (0.0-10.0) H 01/22/19 06:44 Eos % (Auto) 1.9 % (0.0-4.0) 01/22/19 06:44 Baso % (Auto) 0.4 % (0.0-2.0) 01/22/19 06:44 Neut # (Auto) 6.7 K/uL (1.8-7.0) 01/22/19 06:44 Lymph # (Auto) 1.5 K/uL (1.0-4.3) 01/22/19 06:44 [place] # (Auto) 1.0 K/uL (0.0-0.8) H 01/22/19 06:44 Eos # (Auto) 0.2 K/uL (0.0-0.7) 01/22/19 06:44 Baso # (Auto) 0.0 K/uL (0.0-0.2) 01/22/19 06:44 PT 11.2 SECONDS (9.7-12.2) 01/21/19 09:23 INR 1.0 01/21/19 09:23 APTT 31.9 SECONDS (21-34) 01/21/19 09:23 Sodium 140 mmol/L (132-148) 01/22/19 06:56 Potassium 4.1 mmol/L (3.6-5.2) 01/22/19 06:56 Chloride 105 mmol/L (98-107) 01/22/19 06:56 Carbon Dioxide 22 mmol/L (22-30) 01/22/19 06:56 Anion Gap 18 (10-20) 01/22/19 06:56 BUN 22 mg/dL (9-20) H 01/22/19 06:56 Creatinine 1.0 mg/dL (0.8-1.5) 01/22/19 06:56 Est GFR ( Amer) > 60 01/22/19 06:56 Est GFR (Non-Af Amer) > 60 01/22/19 06:56 POC Glucose (mg/dL) 199 mg/dL (65-110) H 01/22/19 16:42 Random Glucose 129 mg/dL (75-110) H 01/22/19 06:56 Hemoglobin A1c 7.2 % (4.2-6.5) H 01/22/19 06:56 Calcium 10.0 mg/dl (8.6-10.4) 01/22/19 06:56 Phosphorus 3.5 mg/dL (2.5-4.5) 01/22/19 06:56 Magnesium 1.9 mg/dL (1.6-2.3) 01/22/19 06:56 Total Bilirubin 0.7 mg/dL (0.2-1.3) 01/22/19 06:56 AST 34 U/L (17-59) 01/22/19 06:56 ALT 11 U/L (21-72) L D 01/22/19 06:56 Alkaline Phosphatase 63 U/L (38-126) 01/22/19 06:56 NT-Pro-B Natriuret Pep 252 pg/mL (0-900) 01/21/19 09:23 Total Protein 7.9 g/dL (6.3-8.3) 01/22/19 06:56 Albumin 4.5 g/dL (3.5-5.0) 01/22/19 06:56 Globulin 3.4 gm/dL (2.2-3.9) 01/22/19 06:56 Albumin/Globulin Ratio 1.3 (1.0-2.1) 01/22/19 06:56 Urine Color Yellow (YELLOW) 01/21/19 09:23 Urine Clarity Clear (Clear) 01/21/19 09:23 Urine pH 5.0 (5.0-8.0) 01/21/19 09:23 Ur Specific [place] 1.014 (1.003-1.030) 01/21/19 09:23 Urine Protein Negative mg/dL (NEGATIVE) 01/21/19 09:23 Urine Glucose (UA) Normal mg/dL (Normal) 01/21/19 09:23 Urine Ketones Negative mg/dL (NEGATIVE) 01/21/19 09:23 Urine Blood Negative (NEGATIVE) 01/21/19 09:23 Urine Nitrate Negative (NEGATIVE) 01/21/19 09:23 Urine Bilirubin Negative (NEGATIVE) 01/21/19 09:23 Urine Urobilinogen Normal mg/dL (0.2-1.0) 01/21/19 09:23 Ur Leukocyte Esterase Neg [place]/uL (Negative) 01/21/19 09:23 Urine WBC (Auto) < 1 /hpf (0-5) 01/21/19 09:23 Urine RBC (Auto) < 1 /hpf (0-3) 01/21/19 09:23 Ur Squamous Epith Cells < 1 /hpf (0-5) 01/21/19 09:23 - Hospital Course Hospital Course: HPI at time of admission "This is an 83 y o male with PMhx HTN, HLD, Vit D deficiency, and CAD s/p 5 stents (3 placed in 2002, 2 placed in 2007), who presents to the ED with c/o pruritic rash that has been worsening for the past 3 days. Pt states he was recently placed on Vitamin D oral therapy by his PCP 3 days ago and thinks it might be attributed to that. States rash is generalized over anterior and posterior torso, and extends down to the anterior shins b/l. Has tried topical anti-itch lotion OTC for symptoms without relief. He told his daughter about his symptoms and she stated that he might have Shingles and told him to come to the ED to be evaluated. Pt states he drove himself to the ED, presents at bedside with his girlfriend. Unable to describe rash, but denies any abnormal discharge weeping from the lesions. 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 Denies fever, chills, headache, dizziness, chest pain, sob, n/v/d/c, abd pain, urinary complaints, or other symptoms." Hospital Course: Pertinent findings: CXR, CT abd/pelvis negative for acute findings Pt was admitted for observation of allergic urticaria and pruritis after medication administered in ED. On day of discharge (01/22/19), symptoms were improving as per patient, and bloodwork otherwise wnl r/o infection or biliary etiology as source of symptoms. Pt was d/c to home with scripts for Pepcid, Hydroxyzine, and Calamine lotion. Was instructed to f/u with Dr. Mcneil within 2-3 days of discharge for f/u of urticaria and pruritis. Instructed to come to ED or call PCP if symptoms worsened. This is a summary of the hospital course. For further details, please refer to the hospital EMR. Discharge Exam - Head Exam Head Exam: ATRAUMATIC, NORMOCEPHALIC - Eye Exam Eye Exam: EOMI, Normal appearance, PERRL - ENT Exam ENT Exam: Mucous Membranes Moist - Respiratory Exam Respiratory Exam: Clear to PA & Lateral, NORMAL BREATHING PATTERN, UNREMARKABLE. absent: Rales, Rhonchi, Wheezes - Cardiovascular Exam Cardiovascular Exam: REGULAR RHYTHM, +S1, +S2. absent: Gallop, Rubs, Systolic Murmur - GI/Abdominal Exam GI & Abdominal Exam: Normal Bowel Sounds, Soft, Unremarkable - Extremities Exam Extremities exam: full ROM, normal capillary refill, normal inspection, pedal pulses present - Neurological Exam Neurological exam: Alert, CN II-XII Intact, Normal Gait, Oriented x3, Reflexes Normal - Skin Skin Exam: Dry, Intact, Normal Color, Warm Discharge Plan - Discharge Medications Prescriptions: Calamine/Zinc Oxide [Calamine Lotion] 1 ml TOP BID PRN #1 bottle PRN Reason: Itching / Pruritus Famotidine [Pepcid] 20 mg PO BID #14 tab hydrOXYzine HCl [Atarax] 25 mg PO Q6H PRN #30 tab PRN Reason: Itching / Pruritus - Follow Up Plan Condition: GOOD Disposition: HOME/ ROUTINE Instructions: Acute Abdominal Pain (DC) Additional Instructions: Please follow-up with your primary care physician (Dr. Mcneil) within 2-3 days of hospital discharge. Please resume your home medications as prescribed. Can take Calamine lotion applied twice daily as needed for itching. Can take Hydroxyzine every 6 hours as needed for itching symptoms. Take Pepcid twice daily which will also help with your allergic symptoms. Should your symptoms worsen, please call your primary care physician or report to your nearest emergency department. Referrals: Kell Mcneil MD [Staff Provider] - <Adin Sheriff - Last Filed: 01/23/19 07:27> Provider - Provider Date of Admission: 01/21/19 13:27 Attending physician: Gina Milian MD Hospital Course - Lab Results Lab Results: Most Recent Lab Values WBC 9.4 K/uL (4.8-10.8) 01/22/19 06:44 RBC 5.45 Mil/uL (4.40-5.90) 01/22/19 06:44 Hgb 17.5 g/dL (12.0-18.0) 01/22/19 06:44 Hct 51.2 % (35.0-51.0) H 01/22/19 06:44 MCV 94.0 fL (80.0-94.0) 01/22/19 06:44 MCH 32.1 pg (27.0-31.0) H 01/22/19 06:44 MCHC 34.2 g/dL (33.0-37.0) 01/22/19 06:44 RDW 13.3 % (11.5-14.5) 01/22/19 06:44 Plt Count 168 K/uL (130-400) 01/22/19 06:44 MPV 10.3 fL (7.2-11.7) 01/22/19 06:44 Neut % (Auto) 70.7 % (50.0-75.0) 01/22/19 06:44 Lymph % (Auto) 16.1 % (20.0-40.0) L 01/22/19 06:44 [place] % (Auto) 10.9 % (0.0-10.0) H 01/22/19 06:44 Eos % (Auto) 1.9 % (0.0-4.0) 01/22/19 06:44 Baso % (Auto) 0.4 % (0.0-2.0) 01/22/19 06:44 Neut # (Auto) 6.7 K/uL (1.8-7.0) 01/22/19 06:44 Lymph # (Auto) 1.5 K/uL (1.0-4.3) 01/22/19 06:44 [place] # (Auto) 1.0 K/uL (0.0-0.8) H 01/22/19 06:44 Eos # (Auto) 0.2 K/uL (0.0-0.7) 01/22/19 06:44 Baso # (Auto) 0.0 K/uL (0.0-0.2) 01/22/19 06:44 PT 11.2 SECONDS (9.7-12.2) 01/21/19 09:23 INR 1.0 01/21/19 09:23 APTT 31.9 SECONDS (21-34) 01/21/19 09:23 Sodium 140 mmol/L (132-148) 01/22/19 06:56 Potassium 4.1 mmol/L (3.6-5.2) 01/22/19 06:56 Chloride 105 mmol/L (98-107) 01/22/19 06:56 Carbon Dioxide 22 mmol/L (22-30) 01/22/19 06:56 Anion Gap 18 (10-20) 01/22/19 06:56 BUN 22 mg/dL (9-20) H 01/22/19 06:56 Creatinine 1.0 mg/dL (0.8-1.5) 01/22/19 06:56 Est GFR ( Amer) > 60 01/22/19 06:56 Est GFR (Non-Af Amer) > 60 01/22/19 06:56 POC Glucose (mg/dL) 199 mg/dL (65-110) H 01/22/19 16:42 Random Glucose 129 mg/dL (75-110) H 01/22/19 06:56 Hemoglobin A1c 7.2 % (4.2-6.5) H 01/22/19 06:56 Calcium 10.0 mg/dl (8.6-10.4) 01/22/19 06:56 Phosphorus 3.5 mg/dL (2.5-4.5) 01/22/19 06:56 Magnesium 1.9 mg/dL (1.6-2.3) 01/22/19 06:56 Total Bilirubin 0.7 mg/dL (0.2-1.3) 01/22/19 06:56 AST 34 U/L (17-59) 01/22/19 06:56 ALT 11 U/L (21-72) L D 01/22/19 06:56 Alkaline Phosphatase 63 U/L (38-126) 01/22/19 06:56 NT-Pro-B Natriuret Pep 252 pg/mL (0-900) 01/21/19 09:23 Total Protein 7.9 g/dL (6.3-8.3) 01/22/19 06:56 Albumin 4.5 g/dL (3.5-5.0) 01/22/19 06:56 Globulin 3.4 gm/dL (2.2-3.9) 01/22/19 06:56 Albumin/Globulin Ratio 1.3 (1.0-2.1) 01/22/19 06:56 Urine Color Yellow (YELLOW) 01/21/19 09:23 Urine Clarity Clear (Clear) 01/21/19 09:23 Urine pH 5.0 (5.0-8.0) 01/21/19 09:23 Ur Specific [place] 1.014 (1.003-1.030) 01/21/19 09:23 Urine Protein Negative mg/dL (NEGATIVE) 01/21/19 09:23 Urine Glucose (UA) Normal mg/dL (Normal) 01/21/19 09:23 Urine Ketones Negative mg/dL (NEGATIVE) 01/21/19 09:23 Urine Blood Negative (NEGATIVE) 01/21/19 09:23 Urine Nitrate Negative (NEGATIVE) 01/21/19 09:23 Urine Bilirubin Negative (NEGATIVE) 01/21/19 09:23 Urine Urobilinogen Normal mg/dL (0.2-1.0) 01/21/19 09:23 Ur Leukocyte Esterase Neg [place]/uL (Negative) 01/21/19 09:23 Urine WBC (Auto) < 1 /hpf (0-5) 01/21/19 09:23 Urine RBC (Auto) < 1 /hpf (0-3) 01/21/19 09:23 Ur Squamous Epith Cells < 1 /hpf (0-5) 01/21/19 09:23 Attending/Attestation - Attestation I have personally seen and examined this patient.: Yes I have fully participated in the care of the patient.: Yes I have reviewed all pertinent clinical information, including history, physical exam and plan: Yes Notes (Text): 01/23/19 07:26 Medical attending: Patient was seen and examined by me. Agree with the above note by the resident The patient was not in any acute distress at this time. He had a CT of the abdomen and pelvis, there is a renal cyst however it appears stable and he has had this for some time now. Reviewed the lab work as well and his CBC and CMP appear stable. Family present and we discussed with the patient that he should continue taking the topical cream for the time being. Adin Sheriff
[2019-01-22 19:37] VITALS: O2SAT 98
== END 2019-01-22 18:06 | disposition home or self-care (01) ==
LOC: C.ER 07:17 → C.9E 13:27 → C.3T 16:25
PROVIDERS: ADMIT Internal Medicine; ATTEND Internal Medicine
DX: L50.0 Allergic urticaria (principal); K57.30 Diverticulosis of large intestine without perforation or abscess without bleeding; I25.10 Atherosclerotic heart disease of native coronary artery without angina pectoris; N40.0 Benign prostatic hyperplasia without lower urinary tract symptoms; I10 Essential (primary) hypertension; E78.5 Hyperlipidemia, unspecified; E11.9 Type 2 diabetes mellitus without complications; Z95.5 Presence of coronary angioplasty implant and graft; Z79.84 Long term (current) use of oral hypoglycemic drugs; Z79.02 Long term (current) use of antithrombotics/antiplatelets; E55.9 Vitamin D deficiency, unspecified; E78.00 Pure hypercholesterolemia, unspecified; Z87.891 Personal history of nicotine dependence
CPT/HCPCS: 36415; 71045; 74176; 80053; 81001; 82948; 83036; 83735; 83880; 84100; 85025; 85610; 85730; 97116; 97161; 99285; G0378; G8978; G8979; G8980; J1644